=== PATIENT | male | born 2000 | race Caucasian/White ===

== ENCOUNTER 2025-01-02 22:08 | Emergency (ER) | payer MEDICAID ==
[~2025-01-02] VITALS: Ht 175.3 cm; Wt 72.6 kg
[2025-01-03 00:35] VITALS: TEMP 98.3
[2025-01-03] MEDS ORDERED: KETOROLAC TROMETHAMINE 15 MG/ML VIAL ONE (01:28)
[2025-01-03] MEDS ORDERED: PIPERACI/TAZO 3.375GM/D5W 50ML PB IV ONE (01:28)
[2025-01-03 01:34] LABS: BASOPHILS # (AUTO) 0.1 K/uL (0.0-0.2); BASOPHILS % (AUTO) 0.7 % (0.0-2.0); EOSINOPHILS # (AUTO) 0.3 K/uL (0.0-0.7); EOSINOPHILS % (AUTO) 2.5 % (0.0-6.0); HEMATOCRIT 43 % (39-51); HEMOGLOBIN 14.4 g/dL (13.5-17.5); LYMPHOCYTES # (AUTO) 2.7 K/uL (0.8-4.8); LYMPHOCYTES % (AUTO) 23.7 % (20.0-44.0); MEAN CORPUSCULAR HEMOGLOBIN 27 PG (26.0-33.0); MEAN CORPUSCULAR HGB CONC 33 g/dl (31.0-36.0); MEAN CORPUSCULAR VOLUME 82 fL (80-96); MONOCYTES # (AUTO) 0.5 K/uL (0.1-1.30); MONOCYTES % (AUTO) 4.6 % (2.0-12.0); NEUTROPHILS # (AUTO) 7.8 K/uL (1.8-8.9); NEUTROPHILS % (AUTO) 68.5 % (43.0-81.0); PLATELET COUNT (AUTO) 191 K/uL (150-450); RED BLOOD CELL COUNT(AUTO) 5.28 MIL/uL (4.5-6.0); RED CELL DISTRIBUTION WIDTH 14.7 % (11.5-15.0); WHITE BLOOD COUNT (AUTO) 11.3 K/uL (4.3-11.0)
[2025-01-03] MEDS: KETOROLAC TROMETHAMINE 15 MG/ML VIAL IV ONE (01:37)
[2025-01-03] MEDS: PIPERACILLIN /TAZOBACTAM 3.375 G in IV D5W 50 ML IV ONE (01:37)
[2025-01-03] MEDS: IV NS 0.9% 1,000 ML BAG IV ONE (01:37)
[2025-01-03 01:43] LABS: CALCIUM, SERUM 9.4 mg/dL (8.5-10.1); CREATININE 1.1 mg/dL (0.6-1.3); POTASSIUM 3.5 mmol/L (3.5-5.1)
[2025-01-03 01:48] LABS: INR 0.95 (0.91-1.10); PARTIAL THROMBOPLASTIN TIME 27.9 SEC (24.3-34.3); PROTHROMBIN TIME 10.1 SECS (9.2-11.1)
[2025-01-03 01:53] LABS: LACTIC ACID 0.7 mmol/L (0.4-2.0)
[2025-01-03] MEDS ORDERED: IOHEXOL-300 100 ML VIAL IV ONE (02:03)
[2025-01-03] MEDS ORDERED: AMOX-430 PO (03:38)
[2025-01-03] MEDS ORDERED: IBUP-1490 PO (03:38)
[2025-01-03 04:03] VITALS: BP 131/74; O2SAT 98
== END 2025-01-03 04:04 | disposition home or self-care (01) ==
LOC: ER 22:14
DX: L02.215 Cutaneous abscess of perineum (principal); Z86.2 Personal history of diseases of the blood and blood-forming organs and certain disorders involving the immune mechanism
CPT/HCPCS: 99285; 96365; 72193; 96375; 85025; 80048; 87040 ×2; 83605; 36415; 85730; J1885; J2543 ×2; J7060; J7030; Q9967